=== PATIENT | male | born 1970 | race American Indian/Alaskan Native ===

== ENCOUNTER 2018-09-10 16:00 | Emergency (ER) | payer OTHER ==
[2018-09-10] MEDS ORDERED: MOTRIN PO ONE ×2 (19:43→19:54)
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
[2018-09-11 01:16] VITALS: BP 156/88
== END 2018-09-10 22:57 | disposition home or self-care (01) ==
LOC: ED 16:00
DX: S46.911A Strain of unspecified muscle, fascia and tendon at shoulder and upper arm level, right arm, initial encounter (principal); M54.5 Low back pain; M54.2 Cervicalgia; V89.2XXA Person injured in unspecified motor-vehicle accident, traffic, initial encounter; Y93.89 Activity, other specified; Y92.488 Other paved roadways as the place of occurrence of the external cause; Y99.8 Other external cause status
CPT/HCPCS: 72040; 72070; 72100; 99283